=== PATIENT | female | born 1985 | race Caucasian/White ===

== ENCOUNTER → 2019-10-26 | Day surgery (SDC) | payer OTHER ==
[~2019-10-26] MED LIST: CETIRIZINE HCL5 MG PO; PROAIR HFA8.5 GM INH
[2019-10-26 07:37] LABS: HEMATOCRIT 37.9 % (37.0-47.0); HEMOGLOBIN 12.9 gm/dL (12.0-15.0)
[2019-10-26 07:54] LABS: CALCIUM 8.2 mg/dL (8.5-10.1); CREATININE 0.7 mg/dL (0.6-1.3); POTASSIUM 3.8 mmol/L (3.5-5.1)
[2019-10-26 07:59] LABS: ALBUMIN 3.4 g/dL (3.4-5.0); TOTAL BILIRUBIN 0.4 mg/dL (<0.1-1.0); TOTAL PROTEIN 7.5 g/dL (6.4-8.2)
--- NOTE | 2019-10-26 12:26 | OP ---
[facility] [address] [place] [address] OPERATIVE REPORT Name: GIBRAN CUMMINGS Room: [facility]#: [id number] Admission: 10/26/19 Attend Phys: Cem Cam Discharge: Date of : 83 Report #: [id number] THIS REPORT FOR: //name// cc: Irma Abel Maggie M. DO THIS REPORT FOR: //name// CC: Cem Abel DATE OF SERVICE: 10/26/2019 PREOPERATIVE DIAGNOSIS: Chronic cholecystitis. POSTOPERATIVE DIAGNOSIS: Chronic cholecystitis. OPERATION: Laparoscopic cholecystectomy. SURGEON: Cem Cam MD ANESTHESIA: General. ESTIMATED BLOOD LOSS: Minimal. SPECIMEN: Gallbladder. DESCRIPTION OF PROCEDURE: After informed consent was obtained, the patient was brought to the operating room and placed supine. SCDs were placed and working, preoperative antibiotics were administered, general anesthesia was induced. The abdomen was prepped and draped in the usual sterile fashion. A 10 mm incision was made above the umbilicus. Fascia was incised and a trocar was placed. Pneumoperitoneum was established. Three right upper quadrant 5 mm ports were placed. Gallbladder was grasped at the fundus and retracted cephalad. Infundibulum was grasped and retracted laterally. I dissected out the cystic duct and cystic artery. I was able to fully dissect out the cystic plate. Once all the structures were fully identified, the cystic duct and artery were clipped and ligated leaving 3 clips on the remaining duct and one on the remaining artery. Gallbladder was then taken off the liver bed with electrocautery. It was placed into an Endopouch and removed. The fascia was then closed with a ziulra-vw-pliqd 0 Vicryl. Skin was closed with 4-0 Monocryl. Incisions were sealed with Dermabond. COMPLICATIONS: [place] [address] OPERATIVE REPORT Name: GIBRAN CUMMINGS Room: [facility]#: [id number] Admission: 10/26/19 Attend Phys: Cem Cam Discharge: Date of : 83 Report #: [id number] DISPOSITION: The patient was taken to recovery in satisfactory condition. <ELECTRONICALLY SIGNED> By: Cem Cam MD 10/26/19 1226 1023 1037Cem Cam MD /nt
--- NOTE | 2019-10-28 11:07 | PATH ---
[address] [address] PATHOLOGY RPT PROCEDURE Name: GIBRAN CUMMINGS Room: [facility]#: [id number] Admission: 10/26/19 Date of : 83 Discharge: Report #: [id number] Path Case #: [id number] [facility] Accession Number: [id number] . 01 Material submitted: . gallbladder - GALLBLADDER . 01 Clinical history: . Chronic cholecystitis . 02 Diagnosis: Gallbladder: - Chronic cholecystitis and cholesterolosis. (MARGARITA:selena; 10/27/2019) [facility] 10/27/2019 1713 Local . 02 Electronically signed: . Wellington Patel MD, Pathologist NPI- [id number] . 01 Gross description: . The specimen is received in formalin, labeled "Gibran Bishop, gallbladder". Received is an intact gallbladder measuring 6.9 x 3.6 x 3.3 cm in greatest dimensions displaying a pink-pulido serosal surface. Opening the specimen reveals a velvety, bile-stained mucosa with moderate cholesterolosis, and with a gallbladder wall thickness of 0.1 cm. Calculi are not present, and no masses or lesions are noted grossly. [employer] sections, to include the proximal margin, are submitted in cassette A1. (CAA; 10/26/2019) [facility] 10/26/2019 1855 Local . 02 Pathologist provided ICD-10: K81.1, K82.4 . 02 CPT . 138059 Specimen Comment: A courtesy copy of this report has been sent to [phone], [phone] Specimen Comment: [phone] Specimen Comment: Report sent to / DR SORTO Performed at: [address] [id number] MD Abhijit Ding MD Phone: [phone] Performed at: [facility] [address] [place], [place] [id number] [address] [address] PATHOLOGY RPT PROCEDURE Name: GIBRAN CUMMINGS Room: [facility].#: [id number] Admission: 10/26/19 Date of : 83 Discharge: Report #: [id number] Path Case #: [id number] MD Wellington Patel MD Phone: [phone]
== END | disposition home or self-care (01) ==
LOC: M.SUR 06:54
PROVIDERS: Anesthesiology; ATTEND Surgery
DX: K81.1 Chronic cholecystitis (principal); Z11.59 Encounter for screening for other viral diseases; Z79.899 Other long term (current) drug therapy